=== PATIENT | female | born 1980 | race Caucasian/White ===

== ENCOUNTER 2017-07-10 12:06 | Emergency (ER) | payer BC ==
[2017-07-10] MEDS ORDERED: Sodium Chloride 0.9% 10 ML Syringe FLUSH PRN (12:30)
[2017-07-10] MEDS ORDERED: Ondansetron 4 MG/2 ML SDV IVPUSH ONE (12:30)
[2017-07-10] MEDS ORDERED: Sodium Chloride 0.9% 1,000 ML IV ONE (12:30)
[2017-07-10] MEDS ORDERED: HYDROmorphone 0.5 MG/0.5 ML SYRINGE IVPUSH ONE (12:30)
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
--- NOTE | 2017-07-10 13:21 | CR ---
Chest: Portable view of the chest was obtained. Comparison: No prior study. Heart size and mediastinum are normal. Lungs are clear. Bony structures are grossly intact. Impression: 1. Nothing acute is seen on portable chest x-ray. Diagnostic code #1
[2017-07-10] MEDS ORDERED: Ketorolac 30 MG/ML SDV IVPUSH ONE (14:31)
[2017-07-10] MEDS ORDERED: Albuterol 0.083% 2.5 MG/3 ML Neb Soln NEB ONE (15:11)
== END 2017-07-10 16:03 | disposition home or self-care (01) ==
LOC: JD.ED 12:06
DX: J40 Bronchitis, not specified as acute or chronic (principal); R09.1 Pleurisy; F17.210 Nicotine dependence, cigarettes, uncomplicated
CPT/HCPCS: 36415; 71045; 80053; 83880; 84484; 85025; 85379; 85610; 85730; 86140; 93005; 94640; 96361; 96374; 96375; 99285; J1170; J1885; J2405; J7040; J7050; 93010; 99284

== ENCOUNTER 2020-12-11 18:17 | Emergency (ER) | payer BC ==
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
[2020-12-11 19:33] LABS: CORONAVIRUS COVID-19 NAA POSITIVE (NEGATIVE)
[2020-12-11] MEDS ORDERED: EPINEPHrine 1 MG/ML SDV IM PRN (21:09)
[2020-12-11] MEDS ORDERED: methylPREDNISolone Sodium Succinate 125 MG/2 ML SDV IVPUSH PRN (21:09)
[2020-12-11] MEDS ORDERED: diphenhydrAMINE 50 MG/ML SDV IVPUSH PRN (21:09)
[2020-12-11] MEDS ORDERED: Famotidine 20 MG/2 ML SDV IVPUSH PRN (21:09)
[2020-12-11] MEDS ORDERED: Sodium Chloride 0.9% 10 ML Syringe FLUSH SCH (21:15)
[2020-12-11] MEDS ORDERED: Amoxicillin 500 MG Cap PO ONE (22:04)
--- NOTE | 2020-12-12 07:41 | CR ---
Chest: Portable view of the chest is obtained. Comparison: Prior chest x-ray of 07/10/17. Heart size and mediastinum are normal. Lungs are clear with no acute parenchymal change. Bony structures show nothing acute. Impression: 1. Nothing acute is seen on portable chest x-ray. Diagnostic code #1
== END 2020-12-11 22:35 | disposition home or self-care (01) ==
LOC: JD.ED 18:17
DX: U07.1 COVID-19 (principal); H66.91 Otitis media, unspecified, right ear; J32.9 Chronic sinusitis, unspecified; Z72.0 Tobacco use
CPT/HCPCS: 0240U; 36415; 71045; 80053; 82728; 83615; 85025; 85379; 86140; 99283; A9270

== ENCOUNTER 2022-01-28 05:07 | Emergency (ER) | payer BC ==
[2022-01-28] MEDS ORDERED: Ketorolac 60 MG/2 ML SDV IM ONE (05:42)
[2022-01-28] MEDS ORDERED: HYDROmorphone 1 MG/ML Syringe IM ONE (05:42)
[2022-01-28 06:28] LABS: ESTIMATED GFR 111 mL/min (>60)
== END 2022-01-28 06:50 | disposition home or self-care (01) ==
LOC: JD.ED 05:07
DX: J10.1 Influenza due to other identified influenza virus with other respiratory manifestations (principal); M54.50 Low back pain, unspecified; M79.604 Pain in right leg; M79.605 Pain in left leg; F17.210 Nicotine dependence, cigarettes, uncomplicated; Z79.899 Other long term (current) drug therapy; Z90.49 Acquired absence of other specified parts of digestive tract; Z90.710 Acquired absence of both cervix and uterus
CPT/HCPCS: 36415; 80053; 85025; 86140; 96372; 99283; J1170; J1885

== ENCOUNTER 2022-11-06 09:56 | Emergency (ER) | payer BC ==
[2022-11-06] MEDS ORDERED: Sodium Chloride 0.9% 10 ML Syringe FLUSH PRN ×2 (10:35→10:42)
[2022-11-06] MEDS ORDERED: cefTRIAXone 2 GM in Sodium Chloride 0.9% 100 ML IV ONE (10:36)
[2022-11-06] MEDS ORDERED: HYDROmorphone 0.5 MG/0.5 ML Syringe IVPUSH ONE ×2 (10:36→11:50)
[2022-11-06] MEDS ORDERED: Iopamidol 612 MG/ML 100 ML Bottle IVPUSH ONE (10:42)
[2022-11-06 11:11] LABS: BASOPHILS ABSOLUTE AUTO 0.1 K/mm3 (0.0-0.2); BASOPHILS PERCENT AUTO 0.5 % (0.0-1.0); EOSINOPHILS ABSOLUTE AUTO 0.4 K/mm3 (0.0-0.4); EOSINOPHILS PERCENT AUTO 3.6 % (0.0-6.0); HEMATOCRIT 42.6 % (37.0-47.0); HEMOGLOBIN 13.7 gm/dl (12.0-16.0); IMMATURE GRAN ABSOLUTE AUTO 0.04 K/mm3 (0.00-0.05); IMMATURE GRAN PERCENT AUTO 0.4 % (0.0-0.4); LYMPHOCYTES ABSOLUTE AUTO 1.5 K/mm3 (1.0-4.8); LYMPHOCYTES PERCENT AUTO 14.4 % (24.0-44.0); MEAN CORPUSCULAR HEMOGLOBIN 28.7 pg (28.0-32.0); MEAN CORPUSCULAR HGB CONC 32.2 g/dl (32.0-36.0); MEAN CORPUSCULAR VOLUME 89.3 fl (83.0-99.0); MEAN PLATELET VOLUME 10.1 fl (9.4-12.3); MONOCYTES ABSOLUTE AUTO 0.9 K/mm3 (0.0-0.8); MONOCYTES PERCENT AUTO 8.8 % (0.0-8.0); NEUTROPHILS ABSOLUTE AUTO 7.5 K/mm3 (1.8-7.7); NEUTROPHILS PERCENT AUTO 72.3 % (41.0-71.0); PLATELET COUNT,PLT 221 K/mm3 (150-400); RED BLOOD CELL COUNT 4.77 M/mm3 (4.10-5.30); WHITE BLOOD CELL COUNT,WBC 10.32 K/mm3 (3.9-11.3)
[2022-11-06 11:32] LABS: A/G RATIO 0.8 (1-2); ALBUMIN 3.2 g/dl (3.4-5.0); BILIRUBIN TOTAL 0.5 mg/dL (0.2-1.0); BUN/CREATININE RATIO 8.8 (14-18); C-REACTIVE PROTEIN 5.3 mg/dL (<1.0); CALCIUM 8.9 mg/dL (8.5-10.1); CREATININE 0.8 mg/dL (0.55-1.02); EST CRCL DRUG DOSING (CG) 79.11 mL/min; PROTEIN TOTAL,TP 7.4 g/dl (6.4-8.2)
== END 2022-11-06 13:52 | disposition home or self-care (01) ==
LOC: JD.ED 09:56
DX: J01.90 Acute sinusitis, unspecified (principal); K04.7 Periapical abscess without sinus
CPT/HCPCS: 36415; 70487; 80053; 85025; 86140; 96365; 96375; 96376; 99284; J0696; J1170; J3490; Q9967; 99283